=== PATIENT | male | born 1960 | race Caucasian/White ===

== ENCOUNTER → 2021-06-08 14:19 | Outpatient (CLI) | payer MEDICAID, SELFPAY | PROVIDERS: Visit Provider Family Medicine | DX: Z20.822 Contact with and (suspected) exposure to COVID-19 (principal) | CPT/HCPCS: C9803; U0003; U0005 ==

== ENCOUNTER 2021-09-20 09:33 | Emergency (ER) | payer MEDICAID, SELFPAY ==
[2021-09-20 09:34] VITALS: BP 193/117; PULSE 91; RESP 30; TEMP 36.8; O2SAT 96; BMI 22.6
--- NOTE | 2021-09-20 09:44 | XR_ITS ---
FINAL REPORT CLINICAL HISTORY: sob FINDINGS: A single portable view of the chest was obtained. The heart size and pulmonary vascularity are within normal limits. The mediastinum is within normal limits. No acute pulmonary abnormality is identified. There is no pneumothorax. The bony thorax is intact. IMPRESSION: No active cardiopulmonary disease. Reviewed, Interpreted and Dictated by Shamar Lao III, MD Transcribed by Riri Ceron Authenticated by Shamar Lao III, MD on 09/20/2021 10:27:09 AM [facility]
--- NOTE | 2021-09-20 10:02 | ECG_ITS ---
APPROVED REPORT Exam: Resting ECG HR:82 bpm ECG Measurements Heart Rate 82 AXES OR 147 P 65 QRSd 85 QRS 76 QT 384 T 76 QTc 423 Conclusion SINUS RHYTHM NORMAL ECG UNCONFIRMED REPORT Electronically signed by : Onel Costa MD 09/20/2021 19:47:43
[2021-09-20 10:20] LABS: Basophils % 0.3 % (0.1-2.0); Eosinophils # 0.2 K/mm3 (0.0-0.4); Eosinophils % 1.8 % (0.1-12.0); Hematocrit 43.1 % (42.0-52.0); Hemoglobin 13.7 g/dL (14.1-18.0); Lymphocytes # 1.3 K/mm3 (0.7-4.5); Mean Corpuscular HGB Conc 31.9 g/dL (31.8-35.4); Mean Corpuscular Hemoglobin 27.3 pg (27.0-31.2); Mean Corpuscular Volume 85.5 fl (80-94); Mean Platelet Volume 7.5 fl (7.4-10.4); Monocytes # 0.9 K/mm3 (0.1-1.0); Monocytes % 6.8 % (1.7-9.3); Neutrophils # 10.5 K/mm3 (1.8-7.8); Platelet Count 324 K/mm3 (142-424); Red Blood Count 5.04 M/mm3 (4.60-6.20); Red Cell Distribution Width 15.5 % (11.5-17.5)
[2021-09-20 10:24] LABS: Chloride 96 mmol/L (98-107); Sodium 131 mmol/L (136-145)
[2021-09-20 10:25] LABS: Potassium 4.1 mmoL/L (3.5-5.1)
[2021-09-20 10:27] LABS: Alanine Aminotransferase 23 U/L (12-78); Albumin Level 3.6 g/dl (3.5-5.0); Albumin/Globulin Ratio 1.2 (1.1-1.8); Alkaline Phosphatase 130 U/L (38-126); Aspartate Amino Transferase 26 U/L (17-59); Bilirubin,Total 0.5 mg/dl (0.2-1.3); Blood Urea Nitrogen 11 mg/dl (9-20); Carbon Dioxide 33 mmol/L (22.0-30.0); Creatinine Clearance Estimated 68 mL/min (50-200); Estimated Glomerular Filt Rate 136 ml/min (>60); GFR (African American) 165 ML/MIN (>60); Total Protein,Serum 6.6 g/dl (6.3-8.2)
[2021-09-20 10:28] LABS: Calcium 8.2 mg/dl (8.4-10.2); Glucose 94 mg/dl (74-100)
[2021-09-20 10:28] LABS: Coronavirus 19, PCR Not Detected (NotDetected); Influenza A, PCR Not Detected (NotDetected); Influenza B, PCR Not Detected (NotDetected)
[2021-09-20 10:30] LABS: Anion Gap 6.1 mEq/L (5-15)
[2021-09-20 10:39] LABS: Troponin I 0.02 ng/ml (0.00-0.034)
--- NOTE | 2021-09-20 10:48 | PC.NURSE ---
GRADY FINISHED PT BACK ON O2 @ 2LPM
--- NOTE | 2021-09-20 10:54 | HMH.EDGENADL ---
ED Disposition Clinical Impression: COPD exacerbation Disposition: Home, Self-Care Condition on Discharge: Good Instructions: DI for Chronic Obstructive Pulmonary Disease Additional Instructions: Please follow up with your primary care physician in 2-3 days for further management. Please take your albuterol inhaler 4 puffs every 4 hours for the next 2 days and then use as needed. Please take the robutussin as prescribed for your cough. Please return for difficulty breathing, chest pain, or any other concerns. Prescriptions: prednisoLONE [Millipred Dp] 5 mg PO Q8 PRN 4 Days #12 tab PRN Reason: Congestion Transmission Status: Received by [facility] Guaifenesin/Dextromethorphan [Robitussin Cough-Chest Dm Liq] 118 ml PO CONSULT PHARMACY [facility]1 applic Transmission Status: Received by [facility] Referrals: Jeffrey Crawford MD [Primary Care Provider] - Time of Disposition: 11:55 - Critical Care Critical Care Time: No Attestation: On 09/20/21, the high probability of a clinically significant, sudden or life threatening deterioration of the following system(s) required my full and direct attention, intervention and personal management. The time I documented below is in addition to time spent performing reported procedures but includes the following listed in this critical care notation. Medical Decision Making - Medical Records Medical records reviewed: Yes: I reviewed the patient's medical records. - [place] Inquiry Pt receiving controlled substance: No Vital Signs: 09/20/21 09:34 09/20/21 11:44 Temperature 98.2 F 98.2 F Temperature Source Oral Pulse Rate 78 Pulse Rate [Radial] 91 H Respiratory Rate 30 H 22 Blood Pressure 156/94 H Blood Pressure [Right Arm] 193/117 H Blood Pressure Mean [Right Arm] 142 Blood Pressure Source Automatic Cuff Blood Pressure Position Sitting Blood Pressure Position [Right Arm] Sitting 02 Sat by Pulse Oximetry 96 Oxygen Delivery Method Nasal Cannula Nasal Cannula Oxygen Flow Rate (LPM) 2 2 - Lab Data Lab results reviewed: Yes: I reviewed the patient's lab results. Lab Results 09/20/21 09:45: SARS-CoV-2 (PCR) Not detected, Influenza A Untype (PCR) Not detected, Influenza Type B (PCR) Not detected 09/20/21 10:00: WBC 13.0 H, RBC 5.04, Hgb 13.7 L, Hct 43.1, MCV 85.5, MCH 27.3, MCHC 31.9, RDW 15.5, Plt Count 324, MPV 7.5, Neut % (Auto) 81.0 H, Lymph % (Auto) 10.0, [place] % (Auto) 6.8, Eos % (Auto) 1.8, Baso % (Auto) 0.3, Neut # (Auto) 10.5 H, Lymph # (Auto) 1.3, [place] # (Auto) 0.9, Eos # (Auto) 0.2, Baso # (Auto) 0.0 09/20/21 10:00: Sodium 131 L, Potassium 4.1, Chloride 96 L, Carbon Dioxide 33 H, Anion Gap 6.1, BUN 11, Creatinine 0.60 L, Estimated Creat Clear 68, Estimated GFR 136, Est GFR ( Amer) 165, Glucose 94, Calcium 8.2 L, Total Bilirubin 0.5, AST 26, ALT 23, Alkaline Phosphatase 130 H, Troponin I 0.02, Total Protein 6.6, Albumin 3.6, Globulin 3.0, Albumin/Globulin Ratio 1.2 09/20/21 10:05: Lactate 1.0 Result diagrams: 09/20/21 10:00 09/20/21 10:00 Orders (Tests/Meds): ED MEDICATIONS Discontinued Medications Generic Name Dose Route Start Last Admin Trade Name Freq PRN Reason Stop Dose Admin Albuterol/Ipratropium 3 ml 09/20/21 09:46 09/20/21 10:21 Ipratropium/Albuterol 3 Ml [facility] 09/20/21 09:47 3 ml ONCE ONE Administration Albuterol/Ipratropium 3 ml 09/20/21 11:02 09/20/21 11:11 Ipratropium/Albuterol 3 Ml [facility] 09/20/21 11:03 3 ml ONCE ONE Administration Dexamethasone Sodium Phosphate 8 mg 09/20/21 09:58 09/20/21 10:22 Dexamethasone 4mg/Ml 1ml Vial IV 09/20/21 09:59 8 mg ONCE ONE Administration ORDERS Category Date Time Status Blood Culture Stat Micro 09/20/21 10:05 Received Medical Decision Narrative: Mr. Adhikari is a 61 yo male w/ PMH for COPD who presents with persistent non productive cough and dyspnea for the last few weeks. Patient has finished course of abx and steroids for pe
[2021-09-20 11:44] VITALS: BP 156/94; PULSE 78; RESP 22; TEMP 36.8; O2SAT 91
== END 2021-09-20 11:46 | disposition home or self-care (01) ==
PROVIDERS: Emergency Provider Student in an Organized Health Care Education/Training Program; PCP Family Medicine
DX: J44.1 Chronic obstructive pulmonary disease with (acute) exacerbation (principal); I10 Essential (primary) hypertension; F17.200 Nicotine dependence, unspecified, uncomplicated; Z20.822 Contact with and (suspected) exposure to COVID-19; Z79.51 Long term (current) use of inhaled steroids; Z79.52 Long term (current) use of systemic steroids; Z79.899 Other long term (current) drug therapy
CPT/HCPCS: 71045; 80053; 83605; 84484; 85025; 87040; 93005; 96374; 99285; C9803; U0003; U0005